=== PATIENT | female | born 1990 | race Hispanic/Latino ===

== ENCOUNTER 2019-05-13 17:37 | Inpatient (IN) | payer MEDICAID, OTHER ==
[~2019-05-13] VITALS: Ht 154.9 cm; Wt 68.0 kg
[2019-05-13] MEDS ORDERED: AMPICILLIN 2GM+NS 100ML 100 ML IV SCH (18:15)
[2019-05-13 18:52] LABS: HEMATOCRIT 33.5 % (36-48); MEAN CORPUSCULAR HEMOGLOBIN 27.8 pg (27.0-33.0); MEAN CORPUSCULAR HGB CONC 33.9 g/dL (32.0-36.0); MEAN CORPUSCULAR VOLUME 82.2 fL (79-99); PLATELET COUNT (AUTO) 230 K/uL (130-400); RED BLOOD CELL COUNT(AUTO) 4.08 MIL/uL (4.00-5.50); RED CELL DISTRIBUTION WIDTH 15.6 % (11.0-15.5); WHITE BLOOD COUNT (AUTO) 7.9 K/uL (4.8-10.8)
[2019-05-13 18:54] LABS: APPEARANCE,URINE CLEAR (CLEAR); BILIRUBIN,URINE NEGATIVE (NEGATIVE); COLOR,URINE YELLOW (YELLOW); GLUCOSE, URINE (UA) NEGATIVE (NEGATIVE); KETONES,URINE 5 mg/dL (NEGATIVE); LEUKOCYTE ESTERASE ,URINE SMALL (NEGATIVE); NITRATE,URINE NEGATIVE (NEGATIVE); OCCULT BLOOD,URINE MODERATE (NEGATIVE); PH,URINE 6.5 (5.0-8.0); PROTEIN,URINE NEGATIVE (NEGATIVE); UROBILINOGEN,URINE 0.2 mg/dL (0.2-1.0)
[2019-05-13] MEDS: LACTATED RINGERS 1000ML 1,000 ML IV PRN (19:37)
[2019-05-13 19:50] LABS: BACTERIA,URINE Few /HPF (None Seen)
[2019-05-13 19:51] LABS: SQUAMOUS EPITHELIAL CELL,UR Moderate /HPF (0-2)
[2019-05-13] MEDS: AMPICILLIN 1GM+NS 50ML 50 ML IV SCH (23:55)
[2019-05-14] MEDS: AMPICILLIN 1GM+NS 50ML 50 ML IV SCH ×3 (03:41→22:00)
[2019-05-14] MEDS: LACTATED RINGERS 1000ML 1,000 ML IV PRN (03:41)
[2019-05-14] MEDS ORDERED: OXYTOCIN-LR 20 UNITS/1000 ML 1,000 ML IV ONE ×2 (04:35→10:59)
[2019-05-14] MEDS ORDERED: OXYTOCIN 10 USP UNITS/ML 20 UNIT in LACTATED RINGERS 1000ML 1,000 ML IV SCH (06:00)
[2019-05-14] MEDS ORDERED: MEPERIDINE-PF 50 MG/ML SYG ONE (08:20)
[2019-05-14] MEDS ORDERED: MEPERIDINE-PF 50 MG/ML SYG IVP SCH (08:30)
[2019-05-14] MEDS ORDERED: PROMETHAZINE HCL 25 MG/ML 1ML AMPULE IM SCH (08:30)
[2019-05-14] MEDS ORDERED: OXYTOCIN-LR 20 UNITS/1000 ML 1,000 ML IV SCH (11:00)
[2019-05-14] MEDS ORDERED: MEASLES/MUMPS/RUBELLA VACCINE, LIVE 0.5 ML/VIAL SQ PRN (11:00)
[2019-05-14] MEDS ORDERED: DIPH,PERTUSS(ACELL),TET VAC/PF 0.5 ML VIAL IM PRN (11:00)
[2019-05-14] MEDS ORDERED: WITCH HAZEL 1 PAD TP PRN (11:00)
[2019-05-14] MEDS ORDERED: ACETAMINOPHEN 325 MG TAB PO PRN (11:00)
[2019-05-14] MEDS ORDERED: BENZOCAINE/LANOLIN/ALOE VERA 60 ML AEROSOL TP PRN (11:00)
[2019-05-14] MEDS ORDERED: ACETAMINOPHEN-CODEINE 300/30MG TAB PO PRN (11:00)
[2019-05-14] MEDS ORDERED: LANOLIN 30GM OINTMENT TP PRN (11:00)
[2019-05-14 12:22] VITALS: BP 110/67
[2019-05-14] MEDS: IBUPROFEN 600 MG TABLET PO PRN (13:15)
[2019-05-14] MEDS ORDERED: PREN1CAP26 PO (14:24)
[2019-05-14 16:30] VITALS: BP 97/60
[2019-05-14 19:17] VITALS: BP 102/58
[2019-05-14] MEDS: DOCUSATE SODIUM 100 MG CAP PO SCH (20:57)
[2019-05-14 23:40] VITALS: BP 87/50
[2019-05-15] MEDS: IBUPROFEN 600 MG TABLET PO PRN ×2 (00:35→09:09)
[2019-05-15 03:29] VITALS: BP 93/52
[2019-05-15 05:39] LABS: HEMATOCRIT 28.7 % (36-48); MEAN CORPUSCULAR HEMOGLOBIN 27.9 pg (27.0-33.0); MEAN CORPUSCULAR HGB CONC 33.9 g/dL (32.0-36.0); MEAN CORPUSCULAR VOLUME 82.4 fL (79-99); PLATELET COUNT (AUTO) 170 K/uL (130-400); RED BLOOD CELL COUNT(AUTO) 3.48 MIL/uL (4.00-5.50); RED CELL DISTRIBUTION WIDTH 15.8 % (11.0-15.5); WHITE BLOOD COUNT (AUTO) 9.2 K/uL (4.8-10.8)
[2019-05-15 07:07] VITALS: BP 89/49
[2019-05-15 07:15] LABS: HEPATITIS Bs ANTIGEN SCREEN P Negative (Negative)
[2019-05-15] MEDS: DOCUSATE SODIUM 100 MG CAP PO SCH (09:08)
[2019-05-15 11:12] VITALS: BP 99/50
--- NOTE | 2019-05-15 13:45 | NUR ---
DISCHARGE PT LEFT UNIT VIA WHEELCHAIR, WITH BABY IN ARMS, ACCOMPANIED BY FAMILY. DENIED PAIN AND HAD NO COMPLAINTS. BABY STRAPPED IN CAR SEAT. PT AND BABY TRANSPORTED BY PERSONAL VEHICLE.
== END 2019-05-15 13:45 | disposition home or self-care (01) | DRG 807 ==
LOC: LDH 17:37 → WSH 05-14 12:15
PROVIDERS: ADMIT Obstetrics & Gynecology; ATTEND Obstetrics & Gynecology
PROC: 10E0XZZ Delivery of Products of Conception, External Approach (ICD-10-PCS; principal; 2019-05-14)
PROC: 10907ZC Drainage of Amniotic Fluid, Therapeutic from Products of Conception, Via Natural or Artificial Opening (ICD-10-PCS; 2019-05-14)
PROC: 0W8NXZZ Division of Female Perineum, External Approach (ICD-10-PCS; 2019-05-14)
PROC: 3E033VJ Introduction of Other Hormone into Peripheral Vein, Percutaneous Approach (ICD-10-PCS; 2019-05-14)
PROC: 3E0234Z Introduction of Serum, Toxoid and Vaccine into Muscle, Percutaneous Approach (ICD-10-PCS; 2019-05-14)
DX: O99.824 Streptococcus B carrier state complicating childbirth (principal); Z37.0 Single live birth; Z3A.38 38 weeks gestation of pregnancy; Z23 Encounter for immunization
CPT/HCPCS: 36415; 81001; 85027; 86592; 86850; 86900; 86901; 87340; 90715; A4351; G0378; J0290; J2175; J2590; J7120

== ENCOUNTER 2022-05-03 09:12 | Emergency (ER) | payer MEDICAID, OTHER ==
[~2022-05-03] VITALS: Ht 157.5 cm; Wt 63.5 kg
[~2022-05-03 09:12] MED LIST: PREN1CAP26 PO
[2022-05-03] MEDS ORDERED: ONDANSETRON 4MG INJ IV ONE (09:30)
[2022-05-03] MEDS ORDERED: 0.9%NACL 1000ML 1,000 ML IV SCH (09:30)
[2022-05-03 09:47] LABS: BASOPHILS % (AUTO) 0.1 % (0.0-5.0); EOSINOPHILS % (AUTO) 0.6 % (0.0-8.0); HEMATOCRIT 38.9 % (36-48); MEAN CORPUSCULAR HEMOGLOBIN 29.2 pg (27.0-33.0); MEAN CORPUSCULAR VOLUME 83.5 fL (79-99); NEUTROPHILS % (AUTO) 73.9 % (40.0-77.0); PLATELET COUNT (AUTO) 292 K/uL (130-400); RED BLOOD CELL COUNT(AUTO) 4.66 MIL/uL (4.00-5.50); RED CELL DISTRIBUTION WIDTH 12.8 % (11.0-15.5)
[2022-05-03 09:54] LABS: APPEARANCE,URINE CLOUDY (CLEAR); BILIRUBIN,URINE NEGATIVE (NEGATIVE); COLOR,URINE YELLOW (YELLOW); GLUCOSE, URINE (UA) NEGATIVE (NEGATIVE); KETONES,URINE NEGATIVE (NEGATIVE); LEUKOCYTE ESTERASE ,URINE LARGE (NEGATIVE); NITRATE,URINE NEGATIVE (NEGATIVE); OCCULT BLOOD,URINE NEGATIVE (NEGATIVE); PROTEIN,URINE NEGATIVE (NEGATIVE); UROBILINOGEN,URINE 0.2 mg/dL (0.2-1.0)
[2022-05-03 09:56] LABS: CREATININE 0.6 mg/dL (0.5-1.5); POTASSIUM 3.9 mmol/L (3.5-5.1)
[2022-05-03 10:00] LABS: ALBUMIN 3.8 g/dL (3.5-5.0)
[2022-05-03 10:01] LABS: RBC,URINE 0-1 /HPF (0-1)
[2022-05-03 10:02] LABS: AMORPHOUS SEDIMENT,UR Many /LPF (None Seen); BACTERIA,URINE Moderate /HPF (None Seen)
[2022-05-03] MEDS ORDERED: CEFTRIAXONE 1G VIAL IVP ONE (11:00)
[2022-05-03] MEDS ORDERED: CEFTRIAXONE 1G VIAL ONE (11:14)
[2022-05-03] MEDS ORDERED: ONDA4TAB10 PO (11:37)
[2022-05-03] MEDS ORDERED: MACR100 PO (11:37)
[2022-05-03 11:52] VITALS: BP 128/48
== END 2022-05-03 12:00 | disposition home or self-care (01) ==
LOC: EDH 09:12
DX: O23.41 Unspecified infection of urinary tract in pregnancy, first trimester (principal); N39.0 Urinary tract infection, site not specified; Z20.822 Contact with and (suspected) exposure to COVID-19; Z3A.10 10 weeks gestation of pregnancy
CPT/HCPCS: 99284; 96374; 87635; 96375; 80053; 83690; 85025; 87088; 81001; 36415; C9803; J7030; J0696; J2405

== ENCOUNTER 2022-08-10 20:15 | Observation (INO) | payer MEDICAID, OTHER ==
[~2022-08-10] VITALS: Ht 157.5 cm; Wt 72.1 kg
[~2022-08-10 20:15] MED LIST changes: +MACR100 PO; +ONDA4TAB10 PO
[2022-08-10 20:51] VITALS: BP 123/71
[2022-08-10] MEDS ORDERED: PANTOPRAZOLE 40 MG/VIAL IVP ONE (21:30)
[2022-08-10 22:08] LABS: APPEARANCE,URINE CLOUDY (CLEAR); BILIRUBIN,URINE NEGATIVE (NEGATIVE); COLOR,URINE YELLOW (YELLOW); GLUCOSE, URINE (UA) NEGATIVE (NEGATIVE); KETONES,URINE 150 mg/dL (NEGATIVE); LEUKOCYTE ESTERASE ,URINE 25 Leu/uL (NEGATIVE); NITRATE,URINE NEGATIVE (NEGATIVE); OCCULT BLOOD,URINE NEGATIVE (NEGATIVE); PROTEIN,URINE 20 mg/dL (NEGATIVE)
[2022-08-10 22:11] LABS: BACTERIA,URINE RARE /HPF (None Seen); MUCUS,URINE RARE LPF (None Seen); RBC,URINE 0-1 /HPF (0-1); SQUAMOUS EPITHELIAL CELL,UR MOD /HPF (0-2); WBC,URINE 0-1 /HPF (0-1)
[2022-08-10 22:16] LABS: AMPHET/METH SCREEN,URINE NEGATIVE (NEGATIVE); BARBITURATE SCREEN, URINE NEGATIVE (NEGATIVE); BENZODIAZEPINES SCREEN,URINE NEGATIVE (NEGATIVE); CANNABINOID SCREEN,URINE NEGATIVE (NEGATIVE); COCAINE SCREEN,URINE NEGATIVE (NEGATIVE); OPIATE SCREEN,URINE NEGATIVE (NEGATIVE); PHENCYCLIDINE SCREEN,URINE NEGATIVE (NEGATIVE)
[2022-08-10] MEDS ORDERED: LACTATED RINGERS 1000ML IV SCH (23:30)
== END 2022-08-11 00:05 | disposition home or self-care (01) ==
LOC: EDH 20:15 → LDH 20:16
PROVIDERS: ADMIT Internal Medicine; ATTEND Internal Medicine
DX: O26.892 Other specified pregnancy related conditions, second trimester (principal); R10.13 Epigastric pain; O21.2 Late vomiting of pregnancy; Z3A.24 24 weeks gestation of pregnancy; Z79.899 Other long term (current) drug therapy
CPT/HCPCS: 96374; 59025; 80305; 81001; G0378 ×4; G0379; J7120; C9113 ×2; 96360

== ENCOUNTER 2022-11-11 01:52 | Observation (INO) | payer MEDICAID, OTHER ==
[~2022-11-11] VITALS: Ht 157.5 cm; Wt 78.5 kg
[2022-11-11 02:37] LABS: APPEARANCE,URINE CLEAR (CLEAR); BILIRUBIN,URINE NEGATIVE (NEGATIVE); COLOR,URINE LIGHT-YELLOW (YELLOW); GLUCOSE, URINE (UA) NEGATIVE (NEGATIVE); KETONES,URINE NEGATIVE (NEGATIVE); LEUKOCYTE ESTERASE ,URINE NEGATIVE Leu/uL (NEGATIVE); NITRATE,URINE NEGATIVE (NEGATIVE); OCCULT BLOOD,URINE NEGATIVE (NEGATIVE); PROTEIN,URINE NEGATIVE (NEGATIVE); UROBILINOGEN,URINE 0.2 mg/dL (0.2-1.0)
[2022-11-11 02:44] LABS: AMPHET/METH SCREEN,URINE NEGATIVE (NEGATIVE); BARBITURATE SCREEN, URINE NEGATIVE (NEGATIVE); BENZODIAZEPINES SCREEN,URINE NEGATIVE (NEGATIVE); CANNABINOID SCREEN,URINE NEGATIVE (NEGATIVE); COCAINE SCREEN,URINE NEGATIVE (NEGATIVE); OPIATE SCREEN,URINE NEGATIVE (NEGATIVE); PHENCYCLIDINE SCREEN,URINE NEGATIVE (NEGATIVE)
[2022-11-11 03:13] LABS: BASOPHILS % (AUTO) 0.2 % (0.0-5.0); EOSINOPHILS % (AUTO) 0.7 % (0.0-8.0); HEMATOCRIT 28.7 % (36-48); LYMPHOCYTES % (AUTO) 18.9 % (21.0-51.0); MEAN CORPUSCULAR HEMOGLOBIN 24.5 pg (27.0-33.0); MEAN CORPUSCULAR HGB CONC 31.7 g/dL (32.0-36.0); MEAN CORPUSCULAR VOLUME 77.2 fL (79-99); MONOCYTES % (AUTO) 7.8 % (3.0-13.0); NEUTROPHILS % (AUTO) 71.2 % (40.0-77.0); PLATELET COUNT (AUTO) 268 K/uL (130-400); RED BLOOD CELL COUNT(AUTO) 3.72 MIL/uL (4.00-5.50); RED CELL DISTRIBUTION WIDTH 14.2 % (11.0-15.5); WHITE BLOOD COUNT (AUTO) 9.2 K/uL (4.8-10.8)
[2022-11-11] MEDS ORDERED: BUTORPHANOL TARTRATE 2 MG/ML ONE (03:16)
[2022-11-11 03:25] LABS: ALBUMIN 2.7 g/dL (3.5-5.0); BILIRUBIN,DIRECT 0.1 mg/dL (0.0-0.3); TOTAL PROTEIN, SERUM 6.9 g/dL (6.0-8.3)
[2022-11-11] MEDS: LACTATED RINGERS 1000ML 1,000 ML IV SCH ×2 (03:28→08:25)
[2022-11-11] MEDS ORDERED: BUTORPHANOL TARTRATE 2 MG/ML IVP ONE (03:30)
[2022-11-11 04:39] VITALS: BP 107/58
[2022-11-11] MEDS ORDERED: MEPERIDINE-PF 50 MG/ML SYG IVP ONE (05:00)
[2022-11-11] MEDS ORDERED: PROMETHAZINE HCL 25 MG/ML 1ML AMPULE IM ONE ×2 (05:00→05:06)
[2022-11-11] MEDS ORDERED: MEPERIDINE-PF 50 MG/ML SYG ONE (05:05)
[2022-11-11 09:58] LABS: AMYLASE 61 U/L (25-115); LIPASE 210 U/L (114-286)
== END 2022-11-11 12:40 | disposition home or self-care (01) ==
LOC: EDH 01:52 → LDH 01:53
PROVIDERS: ADMIT Internal Medicine; ATTEND Internal Medicine
DX: O99.613 Diseases of the digestive system complicating pregnancy, third trimester (principal); K80.20 Calculus of gallbladder without cholecystitis without obstruction; Z3A.36 36 weeks gestation of pregnancy
CPT/HCPCS: 96374; 96372; 96361; 82150; 80076; 80305; 83690; 85025; 81003; 36415; 76700; G0378 ×10; G0379; J2550; J0595; J2175; J7120 ×2; 96360

== ENCOUNTER 2023-01-03 22:58 | Inpatient (IN) | payer OTHER ==
[~2023-01-03] VITALS: Ht 157.5 cm; Wt 66.6 kg
[2023-01-03] MEDS ORDERED: IBUPROFEN 600 MG TABLET PO ONE (23:30)
[2023-01-03] MEDS ORDERED: ACETAMINOPHEN 500 MG TABLET PO ONE (23:30)
[2023-01-03] MEDS ORDERED: 0.9%NACL 1000ML 2,000 ML IV SCH (23:30)
[2023-01-03 23:42] LABS: BASOPHILS % (AUTO) 0.2 % (0.0-5.0); EOSINOPHILS % (AUTO) 0.2 % (0.0-8.0); HEMATOCRIT 36.3 % (36-48); LYMPHOCYTES % (AUTO) 16.2 % (21.0-51.0); MEAN CORPUSCULAR HEMOGLOBIN 24.8 pg (27.0-33.0); MEAN CORPUSCULAR HGB CONC 31.4 g/dL (32.0-36.0); MEAN CORPUSCULAR VOLUME 79.1 fL (79-99); NEUTROPHILS % (AUTO) 79.9 % (40.0-77.0); PLATELET COUNT (AUTO) 260 K/uL (130-400); RED BLOOD CELL COUNT(AUTO) 4.59 MIL/uL (4.00-5.50); RED CELL DISTRIBUTION WIDTH 20.8 % (11.0-15.5); WHITE BLOOD COUNT (AUTO) 6.6 K/uL (4.8-10.8)
[2023-01-03 23:46] LABS: BILIRUBIN,URINE NEGATIVE (NEGATIVE); COLOR,URINE YELLOW (YELLOW); GLUCOSE, URINE (UA) NEGATIVE (NEGATIVE); KETONES,URINE NEGATIVE (NEGATIVE); LEUKOCYTE ESTERASE ,URINE 75 Leu/uL (NEGATIVE); NITRATE,URINE NEGATIVE (NEGATIVE); OCCULT BLOOD,URINE NEGATIVE (NEGATIVE); PH,URINE 5.5 (5.0-8.0); PROTEIN,URINE 30 mg/dL (NEGATIVE); UROBILINOGEN,URINE 0.2 mg/dL (0.2-1.0)
[2023-01-03 23:57] LABS: APPEARANCE,URINE SLIGHTLY CLOUDY (CLEAR); CREATININE 0.9 mg/dL (0.5-1.5); POTASSIUM 3.8 mmol/L (3.5-5.1)
[2023-01-03 23:59] LABS: MUCUS,URINE MANY LPF (None Seen); SQUAMOUS EPITHELIAL CELL,UR MANY /HPF (0-2)
[2023-01-04 00:01] LABS: ALBUMIN 3.8 g/dL (3.5-5.0); TOTAL PROTEIN, SERUM 8.1 g/dL (6.0-8.3)
[2023-01-04] MEDS ORDERED: DOXYCYCLINE 100MG+NS 250ML IV ONE (01:00)
[2023-01-04] MEDS ORDERED: LACTULOSE 20 GM/30 ML UDCUP PO PRN (01:30)
[2023-01-04] MEDS ORDERED: ONDANSETRON 4MG INJ IV PRN (01:30)
[2023-01-04] MEDS ORDERED: ACETAMINOPHEN 325 MG TAB PO PRN ×2 (01:30)
[2023-01-04] MEDS ORDERED: MORPHINE 2 MG SYG IV PRN (01:30)
[2023-01-04] MEDS: 0.9%NACL 1000ML 1,000 ML IV SCH ×3 (01:34→22:07)
[2023-01-04 04:45] VITALS: BP 79/54
[2023-01-04] MEDS: ZOSYN 3.375GM+NS 50ML 50 ML IVPB SCH ×3 (05:40→20:26)
[2023-01-04 07:42] VITALS: BP 84/51
[2023-01-04] MEDS: FAMOTIDINE 20MG VIAL IV SCH ×2 (09:01→20:26)
[2023-01-04 10:44] LABS: CRP QUANTITATIVE 71.1 mg/L (0.00-9.0)
[2023-01-04 11:11] VITALS: BP 91/58
[2023-01-04 11:18] LABS: HEMOGLOBIN A1C 4.4 % (4.0-6.0)
[2023-01-04 11:33] LABS: INR 1.05 (0.85-1.15); PROTHROMBIN TIME 11.4 SEC (9.6-11.6)
[2023-01-04 17:06] VITALS: BP 104/69
[2023-01-04 19:57] VITALS: BP 96/56
[2023-01-04 23:24] VITALS: BP 99/69
[2023-01-05] VITALS (26 sets, daily range): BP systolic 92–127; BP diastolic 53–85
[2023-01-05 04:42] LABS: BASOPHILS % (AUTO) 0.2 % (0.0-5.0); EOSINOPHILS % (AUTO) 1.5 % (0.0-8.0); HEMATOCRIT 28.6 % (36-48); LYMPHOCYTES % (AUTO) 25.2 % (21.0-51.0); MEAN CORPUSCULAR HEMOGLOBIN 24.6 pg (27.0-33.0); MEAN CORPUSCULAR HGB CONC 30.8 g/dL (32.0-36.0); MEAN CORPUSCULAR VOLUME 79.9 fL (79-99); MONOCYTES % (AUTO) 8.1 % (3.0-13.0); NEUTROPHILS % (AUTO) 64.7 % (40.0-77.0); PLATELET COUNT (AUTO) 166 K/uL (130-400); RED BLOOD CELL COUNT(AUTO) 3.58 MIL/uL (4.00-5.50); RED CELL DISTRIBUTION WIDTH 20.6 % (11.0-15.5); WHITE BLOOD COUNT (AUTO) 6.5 K/uL (4.8-10.8)
[2023-01-05] MEDS: ZOSYN 3.375GM+NS 50ML 50 ML IVPB SCH ×3 (04:59→20:58)
[2023-01-05 05:03] LABS: CREATININE 0.7 mg/dL (0.5-1.5); POTASSIUM 3.5 mmol/L (3.5-5.1)
[2023-01-05] MEDS: FAMOTIDINE 20MG VIAL IV SCH ×2 (08:25→20:58)
[2023-01-05 12:46] LABS: % IRON SATURATION 5.3 % (22-44)
[2023-01-05] MEDS ORDERED: BUPIVACAINE/PF 0.25% 30ML VIAL IJ ONE (13:07)
[2023-01-05] MEDS ORDERED: LIDOCAINE PF 100MG/5ML (2%) SYRINGE 5ML ONE (13:14)
[2023-01-05] MEDS ORDERED: DEXAMETHASONE SOD PHOSPHATE 10MG/ML 1ML VIAL ONE (13:14)
[2023-01-05] MEDS ORDERED: SUCCINYLCHOLINE CHLORIDE 20 MG/ML 10 ML VIAL ONE (13:14)
[2023-01-05] MEDS ORDERED: GLYCOPYRROLATE 1 MG/5 ML SYRINGE ONE (13:15)
[2023-01-05] MEDS ORDERED: NEOSTIGMINE 5MG/5ML SYR IV ONE (13:15)
[2023-01-05] MEDS ORDERED: PROPOFOL 10 MG/ML 20ML VIAL IV ONE (13:15)
[2023-01-05] MEDS ORDERED: MIDAZOLAM HCL 1 MG/ML 2ML VIAL ONE (13:15)
[2023-01-05] MEDS ORDERED: ONDANSETRON 4MG INJ ONE (13:15)
[2023-01-05] MEDS ORDERED: ROCURONIUM 10MG/1ML SYR 10 MG/ML ML ONE (13:15)
[2023-01-05] MEDS ORDERED: FENTANYL CITRATE PF 50 MCG/1 ML 2ML VIAL ONE ×2 (13:16→13:59)
[2023-01-05] MEDS ORDERED: BUPIVACAINE/PF 0.5% 30ML VIAL INJ ONE (14:05)
[2023-01-05] MEDS ORDERED: MEPERIDINE-PF 25 MG/ML SYG ONE (15:12)
[2023-01-05] MEDS ORDERED: IRON SUCROSE COMPLEX 300 MG in 0.9% NACL 250ML 250 ML IV SCH (17:00)
[2023-01-05] MEDS: 0.9%NACL 1000ML 1,000 ML IV SCH (17:34)
[2023-01-06 04:00] VITALS: BP 134/65
[2023-01-06 04:34] LABS: HEMATOCRIT 31.3 % (36-48); LYMPHOCYTES % (AUTO) 14.1 % (21.0-51.0); MEAN CORPUSCULAR HEMOGLOBIN 24.9 pg (27.0-33.0); MEAN CORPUSCULAR HGB CONC 31.9 g/dL (32.0-36.0); MEAN CORPUSCULAR VOLUME 78.1 fL (79-99); MONOCYTES % (AUTO) 4.9 % (3.0-13.0); NEUTROPHILS % (AUTO) 80.3 % (40.0-77.0); PLATELET COUNT (AUTO) 248 K/uL (130-400); RED BLOOD CELL COUNT(AUTO) 4.01 MIL/uL (4.00-5.50); RED CELL DISTRIBUTION WIDTH 19.9 % (11.0-15.5); WHITE BLOOD COUNT (AUTO) 5.9 K/uL (4.8-10.8)
[2023-01-06 04:51] LABS: ALBUMIN 3.4 g/dL (3.5-5.0); CREATININE 0.6 mg/dL (0.5-1.5); POTASSIUM 3.8 mmol/L (3.5-5.1); TOTAL PROTEIN, SERUM 7.1 g/dL (6.0-8.3)
[2023-01-06] MEDS: ZOSYN 3.375GM+NS 50ML 50 ML IVPB SCH (06:04)
[2023-01-06 08:00] VITALS: BP 101/70
[2023-01-06] MEDS: FAMOTIDINE 20MG VIAL IV SCH (08:17)
[2023-01-06] MEDS ORDERED: AMOX1TAB15 PO (10:29)
[2023-01-06 12:00] VITALS: BP 104/67
== END 2023-01-06 12:50 | disposition home or self-care (01) | DRG 418 ==
LOC: EDH 22:58 → EDHIP 22:59 → 4BH 01-04 04:45
PROVIDERS: ADMIT Hospitalist; ATTEND Hospitalist
PROC: 0FT44ZZ Resection of Gallbladder, Percutaneous Endoscopic Approach (ICD-10-PCS; principal; 2023-01-05 13:41)
DX: K80.18 Calculus of gallbladder with other cholecystitis without obstruction (principal); E87.20 Acidosis, unspecified; N39.0 Urinary tract infection, site not specified; Z20.822 Contact with and (suspected) exposure to COVID-19; D50.9 Iron deficiency anemia, unspecified
CPT/HCPCS: 36415; 74181; 76705; 78227; 80048; 80053; 80061; 81001; 81025; 83036; 83540; 83550; 83605; 83690; 84145; 85025; 85610; 85651; 85730; 86140; 86850; 86900; 86901; 87040; 87088; 87635; 87804; A9537; C9803; G0378; J0330; J1100; J1756; J2001; J2175; J2250; J2405; J2543; J2704; J2710; J3010; J3490; J7030; J7050

== ENCOUNTER 2024-04-26 21:07 | Observation (INO) | payer MEDICAID ==
[~2024-04-26] VITALS: Ht 154.9 cm; Wt 73.9 kg
[~2024-04-26 21:07] MED LIST changes: +AMOX1TAB15 PO; -MACR100 PO; -ONDA4TAB10 PO
[2024-04-26 21:08] VITALS: BP 117/68; PULSE 115; RESP 20; TEMP 98.3
[2024-04-26 21:35] LABS: APPEARANCE,URINE CLOUDY (CLEAR); BILIRUBIN,URINE NEGATIVE (NEGATIVE); COLOR,URINE LIGHT-YELLOW (YELLOW); GLUCOSE, URINE (UA) NEGATIVE (NEGATIVE); KETONES,URINE 20 mg/dL (NEGATIVE); LEUKOCYTE ESTERASE ,URINE 500 Leu/uL (NEGATIVE); NITRATE,URINE NEGATIVE (NEGATIVE); OCCULT BLOOD,URINE NEGATIVE (NEGATIVE); PROTEIN,URINE 10 mg/dL (NEGATIVE); UROBILINOGEN,URINE 0.2 mg/dL (0.2-1.0)
[2024-04-26 21:38] LABS: ADD UA MICROSCOPIC YES
[2024-04-26 21:45] LABS: BACTERIA,URINE RARE /HPF (None Seen); MUCUS,URINE RARE LPF (None Seen); SQUAMOUS EPITHELIAL CELL,UR MANY /HPF (0-2); WBC,URINE 26-50 /HPF (0-1)
[2024-04-26] MEDS ORDERED: acetaMINOPHEN 325 MG TAB PO PRN (22:30)
[2024-04-26] MEDS ORDERED: ondanSETRON 4MG INJ IVP PRN (22:30)
[2024-04-26] MEDS ORDERED: guaiFENesin-DM 200/20MG 10ML PO PRN (22:30)
[2024-04-26] MEDS ORDERED: cefTRIAXone 1G VIAL IVPB ONE (22:30)
[2024-04-26] MEDS: acetaMINOPHEN 325 MG TAB ONE (22:33)
[2024-04-26] MEDS: AZITHROMYCIN 250 MG TABLET PO ONE (22:33)
[2024-04-26] MEDS: cefTRIAXone 1G VIAL ONE (22:34)
[2024-04-26] MEDS: LACTATED RINGERS 1000ML 1,000 ML IV SCH (22:35)
[2024-04-26 22:55] LABS: HEMATOCRIT 30.4 % (36-48); MEAN CORPUSCULAR HEMOGLOBIN 23.9 pg (27.0-33.0); MEAN CORPUSCULAR HGB CONC 31.3 g/dL (32.0-36.0); MEAN CORPUSCULAR VOLUME 76.4 fL (79-99); PLATELET COUNT (AUTO) 275 K/uL (130-400); RED BLOOD CELL COUNT(AUTO) 3.98 MIL/uL (4.00-5.50); RED CELL DISTRIBUTION WIDTH 14.9 % (11.0-15.5); WHITE BLOOD COUNT (AUTO) 9.4 K/uL (4.8-10.8)
[2024-04-26 23:17] LABS: EOSINOPHILS % (MANUAL) 2 % (1-6); LYMPHOCYTES % (MANUAL) 16 % (22-44); MONOCYTES % (MANUAL) 10 % (2-9); SEGMENTED NEUTROPHILS % 72 % (40-70); TOTAL CELLS COUNTED 100
[2024-04-26 23:18] LABS: MAN.DIFF COMMENT-IMPRESSION MANUAL DIFFERENTIAL; WBC MORPHOLOGY SMUDGE CELLS 1+
[2024-04-26] MEDS: ceTIRIzine HCL 5 MG TABLET PO SCH (23:21)
[2024-04-27] MEDS: LACTATED RINGERS 1000ML IV SCH ×2 (00:15)
[2024-04-27] MEDS: AZITHROMYCIN 250 MG TABLET PO SCH (08:42)
== END 2024-04-27 09:25 | disposition home or self-care (01) ==
LOC: EDH 21:07 → LDH 21:08
PROVIDERS: ADMIT Obstetrics & Gynecology; ATTEND Obstetrics & Gynecology
DX: O98.513 Other viral diseases complicating pregnancy, third trimester (principal); U07.1 COVID-19; O99.891 Other specified diseases and conditions complicating pregnancy; M54.50 Low back pain, unspecified; O26.893 Other specified pregnancy related conditions, third trimester; N89.8 Other specified noninflammatory disorders of vagina; Z3A.39 39 weeks gestation of pregnancy; Z79.899 Other long term (current) drug therapy
CPT/HCPCS: 96372; 85025; 86850; 86900; 86901; 87086; 87426; 81001; 36415; 96361 ×2; 96360; G0378 ×12; G0379; J0696; J7120 ×4